=== PATIENT | male | born 1970 | race Two or more races ===

== ENCOUNTER 2018-06-10 14:23 | Emergency (ER) | payer SELFPAY ==
[~2018-06-10] VITALS: Ht 175.3 cm; Wt 92.1 kg
[2018-06-10] MEDS ORDERED: Morphine Sulfate 4mg/ml Inj (IV/IM USE ONLY) IVP ONE (14:30)
--- NOTE | 2018-06-10 15:07 | NUR ---
ED Nurse Note: Pt came in due to right index finger laceration after being crushed by a metal wheel. Noted active bleeding from finger and applied dressing presure on it. aware.
[2018-06-10 15:09] VITALS: BP 135/80
[2018-06-10] MEDS ORDERED: Tetanus/Diptheria/Pertussis Vaccine 0.5ml Syr IM ONE (15:30)
--- NOTE | 2018-06-10 16:54 | Diagnostic Imaging Report ---
Indication: Painful crush injury to the right second finger Technique: 3 views of the right index finger Comparison: none Findings: There is a complex fracture of the index finger. Main pulmonary is slightly obliquely oriented along the shaft, distracted by approximately 3 mm and anteriorly displaced by about one half bone width, slightly angulated. On the AP view, there is also suggestion of a fracture of the lateral corner of the distal phalanx which is nondisplaced. No other fracture demonstrated. No radiopaque foreign body. There is evidence of associated soft tissue injury Impression: Positive for distal phalangeal fracture, as described
[2018-06-10] MEDS ORDERED: Lidocaine 1% Plain 30 ml INJ ONE ×2 (18:54→19:00)
[2018-06-10] MEDS ORDERED: Bupivacaine w/Epi 0.5% 30ml Vial INJ ONE (19:00)
[2018-06-10] MEDS ORDERED: Bupivacaine 0.5% Inj 30 ml vial INJ ONE (19:15)
--- NOTE | 2018-06-10 19:35 | NUR ---
HAND-OFF: Report given to Jae BLAKE.
[2018-06-10] MEDS ORDERED: Bacitracin Oint UD TOPIC ONE (19:57)
--- NOTE | 2018-06-10 20:32 | Emergency Room Report ---
History of Present Illness General Chief Complaint: Laceration Source: Patient (Sully Santos) Present Illness HPI 47-year-old male presents to the emergency department complaining of localized 10 out of 10 in severity pain to the distal aspect of the right index finger status post crush injury from "1000 pound freight equipment dropping onto his finger " patient reports open wounds states that "finger dangling ". He denies taking blood thinning medications he does not know when his last tetanus vaccination was. Patient denies previous injury to this extremity. Patient reports he does have sensation distally however it is somewhat decreased. Denies pain, swelling or tenderness elsewhere or another finger/hand. Patient states he is right-hand dominant. He reports pain with palpation any type of movement of that arm or attempts to flex/extend the right index finger. Denies significant past medical history is not currently taking medications and denies allergies. (Sully Santos) Allergies: Coded Allergies: No Known Allergies (Unverified , 06/10/18) Patient History Past Medical History: see triage record Past Surgical History: none Pertinent Family History: none Reviewed Nursing Documentation: PMH: Agreed; PSxH: Agreed (Sully Santos) Nursing Documentation-PMH Past Medical History: No Stated History (Sully Santos) Review of Systems All Other Systems: negative except mentioned in HPI (Sully Santos) Physical Exam Vital Signs Date Time Temp Pulse Resp B/P (MAP) Pulse Ox O2 Delivery O2 Flow Rate FiO2 06/10/18 14:33 98.1 94 18 128/84 97 Room Air Sp02 EP Interpretation: reviewed, normal General Appearance: alert, GCS 15, non-toxic, moderate distress Head: normocephalic, atraumatic Eyes: bilateral eye normal inspection, bilateral eye PERRL ENT: hearing grossly normal, normal voice Neck: full range of motion Respiratory: lungs clear, normal breath sounds, speaking full sentences Cardiovascular #1: regular rate, rhythm, normal capillary refill Cardiovascular #2: 2+ radial (R) Musculoskeletal: back normal, gait/station normal, normal range of motion, tender - Right Index finger- distal obvious deformity/ limited extension, moderate laceration-non circumferential Neurologic: alert, oriented x3, responsive, motor strength/tone normal, sensory intact, speech normal, grossly normal Psychiatric: judgement/insight normal Skin: normal color, no rash, warm/dry, well hydrated, laceration - Right index laceration approx 3 cm in length non-circumferential, subungual hematoma, decreased extension of the finger, NVI, bleeding controlled. obvious deformity suspect underlying fx. (Sluly Santos) Procedures Laceration/Wound Repair Laceration/Wound Repair : Consent: Verbal Wound Location: upper extremity Wound's Depth, Shape: flap, contused tissue Wound Length (cm): 2 Wound Explored: clean Irrigated w/ Saline (ccs): 200 Betadine Prep?: Yes Anesthesia: 0.5% Sensorcaine Volume Anesthetic (ccs): 2 Wound Debrided: minimal Wound Repaired With: sutures Suture Size/Type: 5:0 Number of Sutures: 5 Layer Closure?: No Splint Applied?: Yes Patient Tolerated: Well Complications: None (Geoff Almonte MD) Medical Decision Making PA Attestation Dr. Almonte is my supervising Physician whom patient management has been discussed with. (Sully Santos) Diagnostic Impression: Primary Impression: Phalanx, hand fracture, open Qualified Codes: S62.609B - Fracture of unspecified phalanx of unspecified finger, initial encounter for open fracture Additional Impression: Subungual hematoma of finger of right hand Qualified Codes: S60.10XA - Contusion of unspecified finger with damage to nail, initial encounter ER Course Pt. presents to the ED c/o laceration to Right index finger highly suspect underlying fracture due to PE and GAETANO. Ddx considered but are not limited to laceration, tendon injury, cellulitis, amputation Vital signs: are WNL, pt. is afebrile H&PE are most consistent with: Right index laceration approx 3 cm in length non-circumferential, subungual hematoma, decreased extension of the finger, NVI , bleeding controlled. obvious deformity suspect underlying fx. ORDERS: none required at this time, the diagnosis is clinical ED INTERVENTIONS: -Morphine 4mg IV -Tetanus vaccine was administered as pt. vaccination status was unknown. - The wound was copiously irrigated with normal saline, and explored for foreign body for which no FB was found. - Laceration is repaired and Subungual hematoma is treated with trepenation- cautery Performed by attending physician: Dr. Almonte. -- Please see his procedure note. -Bacitracin and sterile dressing is applied. - Finger Splint applied to the Right index finger/right hand by interventional radiology tech. Pt. remains neurovascularly intact. Exhausted all efforts to contact multiple hand specialist/plastic surgeon to consult and manage this patient's injury however unsuccessful. Also was able to contact [facility] documentation improvement specialist whom deemed that this patient was not a candidate for transfer and denied acceptance. Discussed with patient: That we make every effort to approximate the laceration as best as we can so that scarring will be as cosmetically pleasing as possible with our limited cosmetic skill set in the Emergency dept. Regardless of our best efforts there will be scarring after laceration repair. The extent of scarring is unknown at this time. Pt to follow-up with documentation improvement specialist. DISCHARGE: At this time pt. is stable for d/c to home. Will provide printed patient care instructions, and any necessary prescriptions. Care plan and follow up instructions have been discussed with the patient prior to discharge. (Sully Santos) Last Vital Signs Date Time Temp Pulse Resp B/P (MAP) Pulse Ox O2 Delivery O2 Flow Rate FiO2 06/10/18 15:09 98.4 79 17 135/80 98 Room Air Status: improved (Sully Santos) Disposition: HOME, SELF-CARE Condition: Stable Scripts Ibuprofen* (MOTRIN*) 600 Mg Tablet 600 MG ORAL THREE TIMES A DAY, #30 TAB 0 Refills Prov: Sully Santos 06/10/18 Hydrocodone Bit/Acetaminophen 5-325* (NORCO 5-325*) 1 Each Tablet 1 TAB ORAL Q6H PRN for For Pain, #15 TAB 0 Refills Prov: Sully Santos 06/10/18 Bacitracin/Polymyxin B Sulfate (BACITRACIN-POLYMYXIN OINTMENT) 28.35 Gm Oint...g. 1 APPLIC TP BID, #28.3 GM Prov: Sully Santos 06/10/18 Amoxicillin/Potassium Clav 875-125* (AUGMENTIN 875-125 TABLET*) 1 Each Tablet 1 TAB ORAL TWICE A DAY for 7 Days, #14 TAB Prov: Sully Santos 06/10/18 Referrals: NOT CHOSEN IPA/MD,REFERRING (PCP) Departure Forms: Return to Work Return to Work Date: Jun 16, 2018 Work Restrictions: None Return to Full Activity: Jun 16, 2018 Patient Instructions: Laceration Care, Adult Additional Instructions: Take medications as directed. Follow up with an ORTHOPEDIC- HAND SPECIALIST in 3-5 days, even if your symptoms have resolved. --Please review list of primary care clinics, if you do not already have a primary care provider who can give you an Orthopedic Referral. Return sooner to ED if new symptoms occur, or current symptoms become worse. Do not drink alcohol, drive, or operate heavy machinery while taking [place] as this may cause drowsiness. - Please note that this Emergency Department Report was dictated using [employer] nailer technology software, occasionally this can lead to erroneous entry secondary to interpretation by the dictation equipment. Sully Santos Jun 10, 2018 20:32 Geoff Almonte MD Jun 11, 2018 13:33
[2018-06-10] MEDS ORDERED: AUGMENTIN 875-1 EAC1 ORAL (20:33)
[2018-06-10] MEDS ORDERED: BACITRACIN-P28.35 GM TP (20:33)
[2018-06-10] MEDS ORDERED: NORCO 5-325 TA1 EACH ORAL (20:33)
[2018-06-10] MEDS ORDERED: IBUPROFEN600 MG ORAL (20:33)
[2018-06-10 20:45] VITALS: BP 128/75
--- NOTE | 2018-06-10 20:45 | NUR ---
ED Nurse Note: PT is medically cleared per ERMD order. pt is stable for transfer. pt status condition and vital signs are reported to ERMD prior to DC. pt vital signs are stable. pt is alert and oriented times 4. pt left with all belongings, including DC ntoes and prescriptions. pt was able to teach back and understands DC notes and prescription. pt is instructed to follow up with primary MD as soon as possible, pt is instructed to return to ER if any variance in condition. ID band removed. pt is able to ambulate. pt is alert and oriented times 4. pt is stable for DC as per ERMD orders.
== END 2018-06-10 20:45 | disposition home or self-care (01) ==
LOC: EMR 17:10
DX: S62.600B Fracture of unspecified phalanx of right index finger, initial encounter for open fracture (principal); S61.210A Laceration without foreign body of right index finger without damage to nail, initial encounter; S60.10XA Contusion of unspecified finger with damage to nail, initial encounter; W22.8XXA Striking against or struck by other objects, initial encounter; Y92.89 Other specified places as the place of occurrence of the external cause; Z23 Encounter for immunization
CPT/HCPCS: 12001; 29130; 36415; 73140; 85610; 85730; 86850; 86900; 86901; 90471; 90715; 96374; 99284; J2270; J3490